=== PATIENT | female | born 1995 ===

== ENCOUNTER 2016-12-26 13:51 | Emergency (ER) | payer MEDICAID ==
[2016-12-26] MEDS ORDERED: Sodium Chloride 0.9% 1,000 ML IV ONE (14:50)
--- NOTE | 2016-12-26 15:04 | C.PDOC ---
History Of Present Illness 21 year old female presents to ER with complaints of pelvic cramping pain and vaginal bleeding since yesterday. Patient reports she found out one week ago she was and took pills 2 days ago. She reports having cramping pain for the past 2 days, light bleeding and yesterday worsened and pain is worse on left side. LMP 11/25/16 Time Seen by Provider: 12/26/16 14:50 Chief Complaint (Nursing): Female Genitourinary History Per: Patient History/Exam Limitations: no limitations Onset/Duration Of Symptoms: Days Current Symptoms Are (Timing): Worse Severity: Moderate Quality Of Discomfort: Cramping Associated Symptoms: denies: Nausea, Vomiting Alleviating Factors: None Recent travel outside of the [place]: No Abnormal Vaginal Bleeding: Yes Past Medical History Reviewed: Historical Data, Nursing Documentation, Vital Signs Vital Signs: Last Vital Signs Temp 98.9 F 12/26/16 16:42 Pulse 84 12/26/16 16:42 Resp 16 12/26/16 16:42 BP 110/71 12/26/16 16:42 Pulse Ox 96 12/26/16 16:49 Family History: States: Unknown Family Hx - Social History Hx Alcohol Use: No Hx Substance Use: No - Immunization History Hx Tetanus Toxoid Vaccination: No Hx Influenza Vaccination: No Hx Pneumococcal Vaccination: No Review Of Systems Constitutional: Negative for: Fever Gastrointestinal: Negative for: Vomiting Genitourinary: Positive for: Vaginal Bleeding, Pelvic Pain (cramping) Physical Exam - Physical Exam Appears: Non-toxic, No Acute Distress Skin: Warm, Dry, No Rash Head: Atraumatic, Normacephalic Eye(s): bilateral: Normal Inspection Nose: Normal Oral Mucosa: Moist Neck: Normal, Normal ROM, Supple Chest: Symmetrical Cardiovascular: Rhythm Regular, No Murmur Respiratory: Normal Breath Sounds, No Rales, No Rhonchi, No Wheezing Gastrointestinal/Abdominal: Normal Exam, Soft, No Tenderness, No Guarding, No Rebound Extremity: Bilateral: Atraumatic, Normal ROM Neurological/Psych: Oriented x3, Normal Speech ED Course And Treatment - Laboratory Results Result Diagrams: 12/26/16 15:12 12/26/16 15:12 Lab Interpretation: No Acute Changes O2 Sat by Pulse Oximetry: 96 (room air) Pulse Ox Interpretation: Normal - CT Scan/US US transvaginal Other Rad Studies (CT/US): Read By Radiologist, Radiology Report Reviewed CT/US Interpretation: Pelvic ultrasound. History: Bleeding. Cramping. Pelvic pain. Comparison: None available. Technique: Real-time sonography was performed through the pelvis utilizing transvaginal technique. Findings: status unknown. Uterus: 8.6 x 5.0 x 6.0 centimeters. Heterogeneous echotexture. Retroverted. Thickened heterogeneous endometrium measuring up to 1.7 centimeters. No free fluid in pelvic cul-de-sac. Right ovary: 3.3 x 2.1 x 3.1 centimeters. Normal flow. Left ovary: 2.4 x 2.0 x 2.3 centimeters. Normal flow. Small hypoechoic cyst measuring 1.5 x 0.9 x 0.9 centimeters. Impression : status unknown. No discrete intrauterine identified. In the setting of a positive test, and lack of discrete intrauterine ; considerations may include a missed versus early versus ectopic . Clinical correlation. Thickened heterogeneous endometrium measuring 1.7 centimeters. Clinical correlation. 1.5 centimeter left ovarian cyst. Medical Decision Making Medical Decision Making: Impression: 21 y.o female with pelvic pain and with bleeding Differential diagnosis includes but not limited to: incomplete , ectopic Plan: * Labs * US t/V Progress: Labs reviewed, BHCG is 55. TV US shows: No discrete intrauterine identified. In the setting of a positive test, and lack of discrete intrauterine ; considerations may include a missed versus early versus ectopic . Thickened heterogeneous endometrium measuring 1.7 centimeters. Clinical correlation. 1.5 centimeter left ovarian cyst. 1552 Consult and speak with ob.infection prevention practitioner donations attendant and discussed lab and US finding. Attempt 2 more calls, Dr Asher is in the OR. 1700 Patient is asking for discharge, she has to go berry picker her child from daycare. She reports feeling better, no acute distress. Vital signs stable. Abdomen soft and nontender, no peritoneal signs. Provide copy of results and instruct patient to return for repeat BHCG and US in 2-3 days Disposition Counseled Patient/Family Regarding: Studies Performed, Diagnosis, Need For Followup - Disposition [facility] Disposition: HOME/ ROUTINE Disposition Time: 16:48 Condition: STABLE Additional Instructions: Return to ER in 72 hours for repeat BHCG and possible US, otherwise repeat US in one week Take Tylenol for any pain Instructions: Threatened Miscarriage (ED) - POA Present On Arrival: None - Clinical Impression Clinical Impression: Pelvic pain affecting , , threatened - PA / VETERINARIAN / Resident Statement MD/DO has reviewed & agrees with the documentation as recorded. - Scribe Statement The provider has reviewed the documentation as recorded by the Scribe Sergio Escalante All medical record entries made by the Scribe were at my direction and personally dictated by me. I have reviewed the chart and agree that the record accurately reflects my personal performance of the history, physical exam, medical decision making, and the department course for this patient. I have also personally directed, reviewed, and agree with the discharge instructions and disposition.
[2016-12-26] MEDS ORDERED: Sodium Chloride 0.9% 1,000 ML ONE (15:13)
[2016-12-26 15:19] LABS: BASO % 0.2 % (0.0-2.0); EOS % 0.4 % (0.0-4.0); HEMATOCRIT 38.8 % (34.0-47.0); LYMPH # 3.2 K/uL (1.0-4.3); LYMPH % 33.4 % (20.0-40.0); MEAN CELL VOLUME 88.7 fL (81.0-99.0); MEAN CORPUSCULAR HEMOGLOBIN 29.8 pg (27.0-31.0); MEAN CORPUSCULAR HGB CONC 33.6 g/dL (33.0-37.0); MEAN PLATELET VOLUME 7.8 fL (7.2-11.7); MONO # 0.5 K/uL (0.0-0.8); MONO % 5.2 % (0.0-10.0); RED CELL DISTRIBUTION WIDTH 12.8 % (11.5-14.5); WHITE BLOOD COUNT 9.6 K/uL (4.8-10.8)
[2016-12-26 15:25] LABS: CHLORIDE 106 mmol/L (98-107)
[2016-12-26 15:26] LABS: SODIUM 141 mmol/L (132-148)
[2016-12-26 15:27] LABS: POTASSIUM 3.3 mmol/L (3.6-5.2)
[2016-12-26 15:29] LABS: ALB/GLOB RATIO 1.2 (1.0-2.1); ALKALINE PHOSPHATASE 63 U/L (38-126); AST/SGOT 22 U/L (14-36); BLOOD UREA NITROGEN 8 mg/dL (7-17); CARBON DIOXIDE 24 mmol/L (22-30); GFR AFRICAN-AMERICAN > 60; TOTAL PROTEIN 7.3 g/dL (6.3-8.3)
[2016-12-26 15:30] LABS: ALT/SGPT 23 U/L (9-52); CALCIUM 8.8 mg/dl (8.6-10.4); GLUCOSE,RANDOM 89 mg/dL (65-105)
[2016-12-26 15:33] LABS: RBC URINE 174 /hpf (0-3); URINE BILIRUBIN NEGATIVE (NEGATIVE); URINE BLOOD 3+ (NEGATIVE); URINE COLOR Yellow (YELLOW); URINE GLUCOSE (UA) NORMAL (Normal); URINE KETONE NEGATIVE (NEGATIVE); URINE LEUKOCYTE ESTERASE TRACE Leu/uL (Negative); URINE PROTEIN 1+ mg/dL (NEGATIVE); URINE UROBILINOGEN NORMAL mg/dL (0.2-1.0); WBC URINE 15 /hpf (0-5)
--- NOTE | 2016-12-26 15:50 | US ---
Pelvic ultrasound History: Bleeding. Cramping. Pelvic pain. Comparison: None available. Technique: Real-time sonography was performed through the pelvis utilizing transvaginal technique. Findings: status unknown. Uterus: 8.6 x 5.0 x 6.0 centimeters. Heterogeneous echotexture. Retroverted. Thickened heterogeneous endometrium measuring up to 1.7 centimeters. No free fluid in pelvic cul-de-sac. Right ovary: 3.3 x 2.1 x 3.1 centimeters. Normal flow. Left ovary: 2.4 x 2.0 x 2.3 centimeters. Normal flow. Small hypoechoic cyst measuring 1.5 x 0.9 x 0.9 centimeters. Impression: status unknown. No discrete intrauterine identified. In the setting of a positive test, and lack of discrete intrauterine ; considerations may include a missed versus early versus ectopic . Clinical correlation. Thickened heterogeneous endometrium measuring 1.7 centimeters. Clinical correlation. 1.5 centimeter left ovarian cyst.
[2016-12-26 16:43] VITALS: BP 110/71; PULSE 84; RESP 16; TEMP 98.9
[2016-12-26 16:50] VITALS: O2SAT 96
== END 2016-12-26 17:09 | disposition home or self-care (01) ==
LOC: C.ER 13:51
DX: O20.0 Threatened abortion (principal); O26.899 Other specified pregnancy related conditions, unspecified trimester; R10.2 Pelvic and perineal pain
CPT/HCPCS: 76830; 80053; 81001; 84702; 84703; 85025; 85610; 85730; 86850; 86900; 96360; 99284; J7040

== ENCOUNTER 2016-12-29 11:41 | Emergency (ER) | payer MEDICAID ==
[2016-12-29 11:47] VITALS: TEMP 98.1; O2SAT 100
--- NOTE | 2016-12-29 11:54 | C.PDOC ---
History Of Present Illness 21 y/o female presents to the ED for repeat labs and US. Pt was seen here 3 days ago for cramping, vaginal bleeding. Pt reports still has mild cramps taking Tylenol with relief and light bleeding. Denies fever, vomiting, dizziness or any other complaints. Time Seen by Provider: 12/29/16 11:50 Chief Complaint (Nursing): Female Genitourinary History Per: Patient History/Exam Limitations: no limitations Onset/Duration Of Symptoms: Days Current Symptoms Are (Timing): Better Severity: Mild Quality Of Discomfort: Cramping Associated Symptoms: denies: Fever, Chills, Vomiting Recent travel outside of the [place]: No Abnormal Vaginal Bleeding: Yes Past Medical History Reviewed: Historical Data, Nursing Documentation, Vital Signs Vital Signs: Last Vital Signs Temp 98.1 F 12/29/16 14:05 Pulse 70 12/29/16 14:05 Resp 18 12/29/16 14:05 BP 103/59 L 12/29/16 14:05 Pulse Ox 100 12/29/16 14:05 Family History: States: Unknown Family Hx - Social History Hx Alcohol Use: No Hx Substance Use: No - Immunization History Hx Tetanus Toxoid Vaccination: No Hx Influenza Vaccination: No Hx Pneumococcal Vaccination: No Review Of Systems Constitutional: Negative for: Fever, Chills Gastrointestinal: Positive for: Abdominal Pain. Negative for: Vomiting Genitourinary: Positive for: Vaginal Bleeding Neurological: Negative for: Dizziness Physical Exam - Physical Exam Appears: Non-toxic, No Acute Distress Skin: Warm, Dry, No Rash Head: Atraumatic, Normacephalic Neck: Normal, Normal ROM, Supple Chest: Symmetrical Cardiovascular: Rhythm Regular, No Murmur Respiratory: Normal Breath Sounds, No Rales, No Rhonchi, No Wheezing Gastrointestinal/Abdominal: Normal Exam, Soft, No Tenderness Back: No CVA Tenderness Extremity: Bilateral: Atraumatic Neurological/Psych: Oriented x3, Normal Speech ED Course And Treatment O2 Sat by Pulse Oximetry: 100 (room air) Pulse Ox Interpretation: Normal Medical Decision Making Medical Decision Making: Prior records reviewed from 12/26/16, patient had lab and US. Labs reviewed, BHCG is 55. TV US shows: No discrete intrauterine identified. In the setting of a positive test, and lack of discrete intrauterine ; considerations may include a missed versus early versus ectopic . Thickened heterogeneous endometrium measuring 1.7 centimeters. Clinical correlation. 1.5 centimeter left ovarian cyst. Plan: * repeat beta and US BHCG is 13.96 US shows status unknown. In the setting of a positive test, and lack of discrete intrauterine , considerations may include early versus missed versus ectopic . Clinical correlation. Otherwise unremarkable sonographic evaluation of the pelvis. [address] Banks and discussed case. She recommends NSAID for pain, nothing further. Disposition Counseled Patient/Family Regarding: Diagnosis, Need For Followup - Disposition Disposition: HOME/ ROUTINE Disposition Time: 13:57 Condition: STABLE Additional Instructions: Your lab and ultrasound show complete You may take Motrin or Tylenol for any pain you may have Instructions: Spontaneous Miscarriage (ED) - POA Present On Arrival: None - Clinical Impression Clinical Impression: Spontaneous - PA / SALES MGR / Resident Statement MD/DO has reviewed & agrees with the documentation as recorded. - Scribe Statement The provider has reviewed the documentation as recorded by the Jordonibgarfield Escalante All medical record entries made by the Alyson were at my direction and personally dictated by me. I have reviewed the chart and agree that the record accurately reflects my personal performance of the history, physical exam, medical decision making, and the department course for this patient. I have also personally directed, reviewed, and agree with the discharge instructions and disposition.
--- NOTE | 2016-12-29 13:39 | US ---
Pelvic ultrasound History: Pain and bleeding. Comparison: None available. Technique: Real-time sonography was performed through the pelvis utilizing transvaginal technique. Findings: LMP of 11/27/2016. status unknown. Uterus: 8.2 x 4.7 x 5.9 centimeters. Retroverted. Heterogeneous echotexture. No discrete intrauterine identified. Endometrium measures 9 millimeters. No free fluid in the pelvic cul-de-sac. Right ovary: 3.4 x 2.1 x 3.2 centimeters. Normal flow. Left ovary: 3.3 x 1.9 x 2.6 centimeters. Normal flow. Impression: status unknown. In the setting of a positive test, and lack of discrete intrauterine , considerations may include early versus missed versus ectopic . Clinical correlation. Otherwise unremarkable sonographic evaluation of the pelvis.
[2016-12-29 14:08] VITALS: BP 103/59; PULSE 70; RESP 18
== END 2016-12-29 14:15 | disposition home or self-care (01) ==
LOC: C.ER 11:41
DX: O03.9 Complete or unspecified spontaneous abortion without complication (principal)